=== PATIENT | male | born 1965 | race Caucasian/White ===

== ENCOUNTER 2023-04-25 11:26 | Emergency (ER) | payer SELFPAY ==
[2023-04-25 11:31] VITALS: BP 176/95; PULSE 72; RESP 18; TEMP 36.4; O2SAT 97; BMI 25.1
--- NOTE | 2023-04-25 11:53 | XR_ITS ---
WS: [id number] EXAMINATION: XR wrist RT min 3V* [id number] REASON FOR EXAM: fall pain COMPARISON: None available. ORDER DATE: 04/25/2023 11:57 AM FINDINGS: There is no sign of any acute osseous or articular abnormality. There is an old fracture deformity wi th exuberant callus surrounding the proximal first metacarpal. There are no specific soft tissue abno rmalities. XR/XR wrist RT min 3V* [id number] IMPRESSION: No acute change
--- NOTE | 2023-04-25 11:53 | XR_ITS ---
WS: [id number] EXAMINATION: XR ribs RT mn 3V w CXR1V [id number] REASON FOR EXAM: fall pain right anterior ribs COMPARISON: None available. ORDER DATE: 04/25/2023 11:57 AM FINDINGS/IMPRESSION: There are acute nondisplaced fractures lateral third fourth and fifth ribs. No underlying pulmonary c hange. No sign of pneumothorax Cardiac and mediastinal outlines are unremarkable
--- NOTE | 2023-04-25 11:55 | ED_ITS ---
HPI - Fall General: Chief Complaint: Fall Stated Complaint: Fall SOB Time Seen by Provider: 04/25/23 11:29 History of Present Illness: Patient presents to the ER with complaints of falling off a ladder approximately 5 feet 2 days ago right rib pain and right wrist pain. Patient says it hurts to cough and take big deep breaths. She has never had this pain before. Review of Systems General: Reports: 10 or more systems reviewed and unremarkable except in HPI and below Physical Exam Const: COMMON NORMALS: no acute distress, average body habitus, patient oriented x3, no limitations, healthy appearing, alert and well nourished HENMT: COMMON NORMALS: normocephalic, atraumatic, hearing grossly normal bilaterally, external ears normal, Normal external nose present and moist oral mucous membranes HEAD & SCALP: normocephalic and atraumatic NOSE: Normal external nose present EXTERNAL EAR: Yes external ears normal Neck/C-Spine: COMMON NORMALS: full ROM, no lymphadenopathy, supple, no meningeal signs, no JVD and Thyroid normal THYROID: Thyroid normal Chest: OTHER: Pain with palpation over right anterior chest wall region. Resp: COMMON NORMALS: normal respiratory effort, No retractions, No use of accessory muscles and clear to auscultation bilaterally AUSCULTATION: clear to auscultation bilaterally OTHER: Pain in right anterior chest region with deep breaths. Cardio: COMMON NORMALS: no JVD, regular rate, regular rhythm, S1 normal heart sound present, S2 normal heart sound present, No gallops present (Cardio), No clicks present (Cardio), No murmurs present (Cardio) and No rub (Cardio) RATE: regular rate RHYTHM: regular rhythm HEART SOUNDS: S1 normal heart sound present and S2 normal heart sound present GI: COMMON NORMALS: Normal to inspection, nondistended, normoactive bowel sounds present, Soft to palpation, non-tender, No hepatosplenomegaly present and no masses PALPATION: Yes Soft to palpation and Yes No hepatosplenomegaly present : COMMON NORMALS: Yes no CVA tenderness BLADDER/KIDNEY EXAM: Yes no CVA tenderness Back/Pelvis: COMMON NORMALS: no CVA tenderness Neuro: COMMON NORMALS: patient oriented x3 SENSORIUM/ORIENTATION: Yes alert MENINGEAL SIGNS: Yes no meningeal signs Course Vital Signs: Vital signs: Vital Signs Temperature 97.6 F 04/25/23 11:31 Pulse Rate 74 04/25/23 12:19 Respiratory Rate 16 04/25/23 12:19 Blood Pressure 169/113 04/25/23 12:19 Pulse Oximetry 94 04/25/23 12:19 Oxygen Delivery Me thod Room Air 04/25/23 12:19 MDM - Fall Medical Decision Making Patient presented ER post fall 2 days ago with complaints of right chest wall pain and right wrist pain. X-rays was obtained patient decided to leave AMA before the x-rays were read. Medical Records I reviewed the patient's medical records. Lab Data I reviewed the patient's lab results. EKG Data EKG 1: I personally reviewed and interpreted this EKG as follows: EKG interpretation date: 04/25/23 EKG interpretation time: 11:34 Prior EKG tracings: not available for review Interpretation: EKG showed normal sinus rhythm with a ventricular rate of 74 beats minute, ME interval 151, QRS duration 101, QTc of 426, no ST-T wave changes Discharge Plan Discharge Patient Disposition: Left Against Medical Advice Clinical Impression: Acute chest wall pain Fall Qualifiers: Encounter type: initial encounter Qualified Code(s): W19.XXXA - Unspecified fall, initial encounter Acute wrist pain Qualifiers: Laterality: right Qualified Code(s): M25.531 - Pain in right wrist Condition: Stable Prescriptions: No Action No Known Home Medications Patient Instructions: Against Medical Advice (ED) Coding Level of Care Code ED [employer] for Lalo Terry
--- NOTE | 2023-04-25 11:58 | PC.PHAR ---
pt states he is taking no rx otc medications no meds pull up on ext med history
[2023-04-25] MEDS: ketorolac 60 mg/2 mL INJ IM (12:16)
[2023-04-25 12:19] VITALS: BP 169/113; PULSE 74; RESP 16; O2SAT 94
== END 2023-04-25 13:08 | disposition left against medical advice (07) ==
PROVIDERS: Emergency Provider Emergency Medicine
DX: R07.89 Other chest pain (principal); M25.531 Pain in right wrist; Z53.21 Procedure and treatment not carried out due to patient leaving prior to being seen by health care provider; W11.XXXA Fall on and from ladder, initial encounter
CPT/HCPCS: 71101; 73110; 96372; 99284; J1885